=== PATIENT | male | born 1990 | race Two or more races ===

== ENCOUNTER → 2024-04-21 | Emergency (ER) | payer OTHER ==
[~2024-04-21] VITALS: Ht 170.2 cm; Wt 65.8 kg
[~2024-04-21] MED LIST: BACLOFEN (10 MG) 10 MG TABLET ONE
[2024-04-21 12:51] LABS: BASOPHILS # (AUTO) 0.1 K/uL (0.0-0.2); BASOPHILS % (AUTO) 1.4 % (0.0-2.0); EOSINOPHILS # (AUTO) 0.3 K/uL (0.0-0.7); EOSINOPHILS % (AUTO) 3.7 % (0.0-6.0); HEMATOCRIT 44 % (39-51); HEMOGLOBIN 14.3 g/dL (13.5-17.5); LYMPHOCYTES # (AUTO) 1.9 K/uL (0.8-4.8); LYMPHOCYTES % (AUTO) 23.3 % (20.0-44.0); MEAN CORPUSCULAR HEMOGLOBIN 27 PG (26.0-33.0); MEAN CORPUSCULAR HGB CONC 33 g/dl (31.0-36.0); MEAN CORPUSCULAR VOLUME 82 fL (80-96); MONOCYTES # (AUTO) 0.6 K/uL (0.1-1.30); MONOCYTES % (AUTO) 6.7 % (2.0-12.0); NEUTROPHILS # (AUTO) 5.4 K/uL (1.8-8.9); NEUTROPHILS % (AUTO) 64.9 % (43.0-81.0); PLATELET COUNT (AUTO) 544 K/uL (150-450); RED CELL DISTRIBUTION WIDTH 13.6 % (11.5-15.0); WHITE BLOOD COUNT (AUTO) 8.3 K/uL (4.3-11.0)
[2024-04-21 13:10] LABS: CALCIUM, SERUM 9.2 mg/dL (8.5-10.1); CREATININE 0.7 mg/dL (0.6-1.3); INR 1.03 (0.91-1.10); PARTIAL THROMBOPLASTIN TIME 30.8 SEC (24.3-34.3); POTASSIUM 4.9 mmol/L (3.5-5.1); PROTHROMBIN TIME 10.9 SECS (9.2-11.1)
[2024-04-21 15:00] VITALS: BP 120/87; TEMP 98.3; O2SAT 98
[2024-04-21] MEDS: BACLOFEN (10 MG) 10 MG TABLET PO ONE (17:46)
[2024-04-21] MEDS: JEVITY 1.2 CAL 1,000 ML BOTTLE GT PRN (18:10)
[2024-04-21] MEDS: BACLOFEN (10 MG) 10 MG TABLET GT ONE (18:10)
== END ==
LOC: ER 11:56
DX: J95.00 Unspecified tracheostomy complication (principal); I10 Essential (primary) hypertension; K21.9 Gastro-esophageal reflux disease without esophagitis; Z86.73 Personal history of transient ischemic attack (TIA), and cerebral infarction without residual deficits; Z98.890 Other specified postprocedural states; Z99.81 Dependence on supplemental oxygen; Z20.822 Contact with and (suspected) exposure to COVID-19
CPT/HCPCS: 36415; 70360-TC; 71045-TC; 80048-TC; 85025-TC; 85730-TC